=== PATIENT | female | born 2000 | race African-American/Black ===

== ENCOUNTER 2023-04-04 15:54 | Outpatient (REF) | payer MEDICAID, SELFPAY ==
[2023-04-05 07:28] LABS: CT PCR NOT DETECTED (Not Detect.); NG PCR NOT DETECTED (Not Detect.)
[2023-04-05 14:35] LABS: HBS Num1 81.57 mIU/mL (0-7.99); HBc Num1 0.07 S/CO (0.00-0.79); HBsAGNum1 0.54 S/CO (0.00-0.99); HIV AB/AG Nonreactive (Nonreactive); HIV Num 1 0.12 S/CO (0.00-0.99); Hepatitis A Antibody IgM 0.24 Index (0-0.79); Hepatitis B Core Antibody Nonreactive (Nonreactive); Hepatitis B Surface Antigen Negative (Negative); ~Hepatitis A Antibody IgM Nonreactive (Nonreactive); ~Hepatitis B Surface Antibody REACTIVE (Nonreactive); ~Hepatitis C Antibody Nonreactive (Nonreactive)
[2023-04-07 09:02] LABS: Syphilis Screen Nonreactive (Nonreactive)
== END 2023-04-04 15:55 | disposition home or self-care (01) ==
LOC: HO.HHCL 15:54
PROVIDERS: Visit Provider Internal Medicine
DX: Z00.00 Encounter for general adult medical examination without abnormal findings (principal); Z11.4 Encounter for screening for human immunodeficiency virus [HIV]; Z11.3 Encounter for screening for infections with a predominantly sexual mode of transmission
CPT/HCPCS: 0353U; 86704; 86706; 86709; 86780; 86803; 87340; 87389

== ENCOUNTER 2023-05-22 12:17 | Outpatient (AMB) | payer MEDICAID, SELFPAY ==
--- NOTE | 2023-05-22 12:19 | A.OFFVIS_ITS ---
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 No history of abnormal Pap smears [facility] Social History (Updated 05/22/23 @ 12:23 by CORINA Seymour) Alcohol intake: current Alcohol intake frequency: holidays/special occasions only Female Reproductive History Menstrual Age of Menarche: 11 Duration of menses: 3-5 days Date of last menstrual period: 05/16/23 control method: none Total pregnancies: 0 Review of Systems Const All systems reviewed & are unremarkable except as noted in HPI and below Physical Exam Vital Signs: Last Vital Signs BP 110/78 05/22/23 12:21 BMI result Body Mass Index 23.0 General: Yes no CVA tenderness External Female Exam: normal appearance of the urethra and other (Whitish discoloration the posterior fourchette, right and left labia minora) Speculum Exam - Vagina: normal appearance of the vagina, normal palpation, no lesions and no masses Speculum Exam - Cervix: normal appearance of the cervix, normal palpation, no lesions, no masses and nontender Bimanual exam- vagina & uterus: normal bimanual exam, normal palpation, uterine size normal, normal palpation, uterine shape normal, No Cervical tenderness present and non-tender Bimanual Exam- Adnexa, other: Other (Right adnexal fullness, left adnexa within normal) Back/Spine/Pelvis Back: no CVA tenderness Assessment & Plan Assessment & Plan (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 GC/CT taken, cervical cytology done, recommended vulvar biopsy rule out KELSEY. Instructions given the patient to schedule a vulvar biopsy appointment within 2 weeks All questions answered, the patient verbalized understanding (2) Adnexal fullness: Code(s): N94.9 - Unspecified condition associated with female genital organs and menstrual cycle Plan: Discussed with the patient the finding on pelvic exam right pelvic for the scan will order pelvic ultrasound. Instructions given the patient to schedule an ultrasound follow-up appointment. All questions answered, the patient verbalized understanding Orders: Orders CT NG by PCR Today N90.4 - Leukoplakia of vulva Pap Smear Today N90.4 - Leukoplakia of vulva US pelvic and transvaginal Today N94.9 - Unspecified condition associated with female genital organs and menstrual cycle Coding Level of Care Code New Pt Level 3 (65830) Diagnoses Vulvar leukoplakia N90.4 Adnexal fullness N94.9
[2023-05-22 12:21] VITALS: BP 110/78; BMI 23.0
== END 2023-05-22 12:50 | disposition home or self-care (01) ==
PROVIDERS: PCP Internal Medicine; Visit Provider Obstetrics & Gynecology
DX: N90.4 Leukoplakia of vulva (principal); N94.9 Unspecified condition associated with female genital organs and menstrual cycle
CPT/HCPCS: 99203

== ENCOUNTER 2023-05-22 12:17 | Outpatient (REF) | payer MEDICAID, SELFPAY ==
[2023-05-22 16:32] LABS: CT PCR NOT DETECTED (Not Detect.); NG PCR NOT DETECTED (Not Detect.)
== END 2023-05-22 12:18 | disposition home or self-care (01) ==
LOC: HO.LNP 12:17
PROVIDERS: PCP Internal Medicine; Visit Provider Obstetrics & Gynecology
DX: N90.4 Leukoplakia of vulva (principal); N94.9 Unspecified condition associated with female genital organs and menstrual cycle
CPT/HCPCS: 0353U; 88142

== ENCOUNTER 2023-06-30 14:05 | Outpatient (REF) | payer MEDICAID, SELFPAY ==
--- NOTE | ~2023-06-30 | US_ITS ---
EXAMINATION: US PELVIS CLINICAL INFORMATION: Adnexal fullness. Unspecified condition associated with female genital organs. Last menstrual period 06/13/2023. Patient denies pain. COMPARISON: None available. TECHNIQUE: Ultrasound of the pelvis is performed using both transabdominal and transvaginal transducers along with Doppler. Transvaginal imaging is performed due to inadequate visualization transabdominally. FINDINGS: The uterus is heterogeneous and measures 7.3 x 3.3 x 4.6 cm and is heterogeneous. No discrete fibroids. Endometrium is heterogeneous in echotexture with thickness of 1.0 cm. Right ovary measures 2.9 x 2.1 x 2.4 cm, volume 7.6 mL and is grossly unremarkable. Left ovary measures 4.2 x 2.0 x 2.1 cm, volume 9.2 mL. Left ovarian 2.4 x 2.1 x 1.8 cm complex cyst with thick bronson, possibly representing an involuting corpus luteum. Small amount of free fluid in the pelvis. US/US pelvic and transvaginal IMPRESSION: 1. No discrete fibroids. Heterogeneous uterus. 2. Endometrium is heterogeneous in echotexture with thickness of 1.0 cm. 3. Small amount of free fluid in the pelvis. 4. Left ovarian 2.4 cm complex cyst with thick bronson, possibly representing an involuting corpus luteum. Correlation with clinical exam and possible gynecologic consultation recommended to determine further management including possible follow-up ultrasound in 6-8 weeks.
== END 2023-06-30 14:06 | disposition home or self-care (01) ==
LOC: HO.US 14:05
PROVIDERS: PCP Internal Medicine; Visit Provider Obstetrics & Gynecology
DX: N94.9 Unspecified condition associated with female genital organs and menstrual cycle (principal)
CPT/HCPCS: 76830; 76856

== ENCOUNTER 2023-07-14 09:42 | Outpatient (AMB) | payer MEDICAID, SELFPAY ==
[2023-07-14 09:56] VITALS: BMI 22.7
--- NOTE | 2023-07-14 09:56 | A.OFFVIS_ITS ---
Intake Vital Signs 07/14/23 09:56 Height 5 ft 5 in Weight 136 lb 10.986 oz BMI 22.7 Intake Visit Reasons: Ultrasound follow up/ Vulvar biopsy Allergies No Known Allergies Allergy (Verified 05/22/23 12:22) HPI HPI Comments History of Present Illness Details Presenting for ultrasound follow-up and vulvar biopsy. GC/chlamydia negative. Pelvic ultrasound showed the following: The uterus is heterogeneous and measures 7.3 x 3.3 x 4.6 cm and is heterogeneous. No discrete fibroids. Endometrium is heterogeneous in echotexture with thickness of 1.0 cm. Right ovary measures 2.9 x 2.1 x 2.4 cm, volume 7.6 mL and is grossly unremarkable. Left ovary measures 4.2 x 2.0 x 2.1 cm, volume 9.2 mL. Left ovarian 2.4 x 2.1 x 1.8 cm complex cyst with thick bronson, possibly representing an involuting corpus luteum. Small amount of free fluid in the pelvis. [facility] Social History Alcohol intake: current Alcohol intake frequency: holidays/special occasions only Female Reproductive History Menstrual Age of Menarche: 11 Review of Systems Const All systems reviewed & are unremarkable except as noted in HPI and below Reports as per HPI and Reports no additional complaints GI Reports no additional complaints Reports no additional complaints Physical Exam Vital Signs: BMI result Body Mass Index 22.7 Office Procedures COLOR TECHNICIAN Biopsy Before the procedure was started d/w patient the procedure, alternatives ( do nothing, medical rx), & all the risks associated with the procedure ( bleeding , infection, vulvar scarring, painful intercourse, injury to vessels, possible need for transfusion with all its risks) then patient signed the consent. Preop dx: Left vulvar leukoplakia Op: Left vulvar leukoplakia biopsy Post op: Same Anesthesia: Lidocaine 1% 3cc used Procedure: Using betadine the area was scrubbed and draped in the usual manner. 3 cc of lidocaine was used for anesthesia at the Left vulvar leukoplakia area ; using scissors and pickup the left vulvar lesion was excised. Pressure was used for hemostasis. The patient tolerated the procedure well. Discharge Instructions: The patient was instructed to schedule an appointment in 2 weeks for follow-up and to call if temp>100.4, area of the biopsy redness or pain, nausea/vomiting. This note was generated with a voice recognition program. Some errors may have been overlooked during the review of this note. Sometimes these errors may affect the content or meaning of a given sentence. 12533-Xsskaq of Vulva/Perineum Procedure code (CPT) selection complete Assessment & Plan Assessment & Plan (1) Complex ovarian cyst: Code(s): N83.299 - Other ovarian cyst, unspecified side Plan: Discussed with the patient the complex ovarian cyst by ultrasound. Discussed with the patient the Ultrasound findings, the main limitation of transvaginal ultrasonography alone as a diagnostic tool to distinguish benign from malignant masses relates to its lack of specificity and low positive predictive value for cancer. The differential diagnosis discussed with the patient includes the following but not limited to: benign and malignant gynecological and non-gynecological causes. Discussed with the patient options of treatment , including laparoscopy ovarian cystectomy/oophorectomy vs. expectant management with repeat US in repeating pelvic US in 12 weeks from previous US. If the ovarian complex cyst is persistent larger and / or more complex looking, will refer to gynecologic Oncology. All pros, cons, risks and benefits of each approach were discussed with the patient including but not limited to a delay in the diagnosis and treatment of ovarian cancer affecting the prognosis; The patient decided to go ahead with expectant management. Instructions given the patient to schedule a 3 months follow-up ultrasound appointment. All questions were answered & the patient verbalized understanding and agreed with the plan. 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
== END 2023-07-14 10:33 | disposition home or self-care (01) ==
PROVIDERS: PCP Internal Medicine; Visit Provider Obstetrics & Gynecology
DX: N90.4 Leukoplakia of vulva (principal); N83.299 Other ovarian cyst, unspecified side
CPT/HCPCS: 56605

== ENCOUNTER 2023-07-14 09:42 | Outpatient (REF) | payer MEDICAID, SELFPAY | END 2023-07-14 09:43 | disposition home or self-care (01) | LOC: HO.LNP 09:42 | PROVIDERS: PCP Internal Medicine; Visit Provider Obstetrics & Gynecology | DX: N83.299 Other ovarian cyst, unspecified side (principal); N90.4 Leukoplakia of vulva | CPT/HCPCS: 56605; 88305 ==

== ENCOUNTER 2023-09-02 13:55 | Outpatient (AMB) | payer MEDICAID, SELFPAY ==
[2023-09-02 13:59] VITALS: BP 106/64; BMI 22.6
--- NOTE | 2023-09-02 13:59 | MHC.OFFVIS ---
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 The pathology showed the following: Vulva, left posterior fourchette, biopsy: Lichen simplex chronicus; negative for dysplasia or fungi [facility] Social History Alcohol intake: current Alcohol intake frequency: holidays/special occasions only Female Reproductive History Menstrual Age of Menarche: 11 Duration of menses: 3-5 days Date of last menstrual period: 08/10/23 control method: none Date of last pap smear: 05/22/23 (negative) Review of Systems Const All systems reviewed & are unremarkable except as noted in HPI and below Reports as per HPI and Reports no additional complaints GI Reports no additional complaints Reports no additional complaints Physical Exam Vital Signs: Last Vital Signs BP 106/64 09/02/23 13:59 BMI result Body Mass Index 22.6 Assessment & Plan Assessment & Plan (1) 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 Counseled the patient on how to stop the ?itch-scratch cycle,? the following information were discussed with the patient regarding vulvar care and hygiene: Avoid baby wipes on anti-septic so but the fluid, scented toilet paper, condoms, contraceptive creams or gels, personal lubricant, nylon underwear, specific laundry detergents, shaving, latex products, sanitary products, soaps, oils, topical agent . In addition recommended to the patient to use the following: Mild soaps, avoiding it on the vulva, cleanse of out with water only, gently pat the vulva dry after bathing, fly preservative-free, unscented or fragrance free emollients to hold the moisture in the skin, use Naty care bottles to rinse after urination, with 100% cotton, and scented fragments free menstrual pads use adequate lubricant for intercourse. Will prescribe a medium-potency, Triamcinolone acetonide 0.1% cream to be used 1-2 times daily for 4 weeks and if it does not work, instructed the patient to call back will send the prescription for clobetasol 0.05%, a high-potency topical corticosteroid ointment , and oral antipruritic medication hydroxyzine 25 mg p.o. Q 6-8 p.r.n. Instructed the patient if she has daytime itching or she cannot tolerate hydroxyzine, will treat with selective serotonin reuptake inhibitor antidepressants (such as fluoxetine, paroxetine, sertraline, or citalopram). Instructed the patient to schedule a should be follow up appointment in 4 weeks after initiation of the treatment Medications: New triamcinolone acetonide 0.1% Apply to the affected area twice a day for 4 weeks 1 appl topical BID 80 grams 0RF 4 weeks Coding Level of Care Code Est Pt Level 3 (59339) Diagnoses Lichen simplex chronicus L28.0
== END 2023-09-02 14:32 | disposition home or self-care (01) ==
PROVIDERS: PCP Internal Medicine; Visit Provider Obstetrics & Gynecology
DX: L28.0 Lichen simplex chronicus (principal)
CPT/HCPCS: 99213

== ENCOUNTER → 2023-09-02 13:55 | Outpatient (BNVA) | payer MEDICAID, SELFPAY | PROVIDERS: PCP Internal Medicine; Visit Provider Obstetrics & Gynecology | DX: L28.0 Lichen simplex chronicus (principal) | CPT/HCPCS: 99212 ==

== ENCOUNTER 2024-01-06 11:28 | Outpatient (REF) | payer MEDICAID, SELFPAY ==
--- NOTE | ~2024-01-06 | US_ITS ---
EXAMINATION: US PELVIS CLINICAL INFORMATION: Ovarian cysts LMP: Began yesterday COMPARISON: Pelvic ultrasound 07/01/2023 TECHNIQUE: Ultrasound of the pelvis is performed using both transabdominal and transvaginal transducers along with Doppler. Transvaginal imaging is performed due to inadequate visualization transabdominally. FINDINGS: Uterus: The uterus is anteverted and measures 7.6 x 3.3 x 4.1 cm. 0.9 x 0.8 x 1.2 cm posterior exophytic fibroid is noted. The endometrial thickness is 0.8 cm. Adnexa: Both ovaries are visualized. There is normal color flow to the adnexa. There is no ovarian torsion. There is a small amount of free fluid within the cul-de-sac. Right ovary measures 3.1 x 2.3 x 2.0 cm. Volume 7.5 mL. 7.4 x 5.0 x 7.0 cm predominantly simple cyst is seen in the right adnexa. This lies superior to the uterus. Left ovary measures 2.3 x 2.0 x 1.5 cm. Volume 3.6 mL. US/US pelvic and transvaginal IMPRESSION: 1. 7.4 cm predominantly simple cyst in the right adnexa. This is probably a benign cyst. Follow-up ultrasound in 3-6 months is recommended. 2. 1.2 cm posterior exophytic fibroid. 3. Normal left ovary.
== END 2024-01-06 11:29 | disposition home or self-care (01) ==
LOC: HO.US 11:28
PROVIDERS: PCP Internal Medicine; Visit Provider Obstetrics & Gynecology
DX: N83.299 Other ovarian cyst, unspecified side (principal)
CPT/HCPCS: 76830; 76856

== ENCOUNTER 2024-01-22 15:25 | Outpatient (AMB) | payer MEDICAID, SELFPAY ==
--- NOTE | 2024-01-22 15:27 | MHC.OFFVIS ---
Vital Signs 01/22/24 15:28 Height 5 ft 5 in Weight 135 lb BMI 22.5 BP 112/70 Blood Pressure Location Lt brachial Position Sitting Intake Visit Reasons: US follow up Allergies No Known Allergies Allergy (Verified 01/22/24 15:27) HPI Comments Details: Presenting for ultrasound follow-up regarding left complex ovarian cyst identified on a previous ultrasound in June of 2023. Ultrasound done recently showed the following: Uterus: The uterus is anteverted and measures 7.6 x 3.3 x 4.1 cm. 0.9 x 0.8 x 1.2 cm posterior exophytic fibroid is noted. The endometrial thickness is 0.8 cm. Adnexa: Both ovaries are visualized. There is normal color flow to the adnexa. There is no ovarian torsion. There is a small amount of free fluid within the cul-de-sac. Right ovary measures 3.1 x 2.3 x 2.0 cm. Volume 7.5 mL. 7.4 x 5.0 x 7.0 cm predominantly simple cyst is seen in the right adnexa. This lies superior to the uterus. Left ovary measures 2.3 x 2.0 x 1.5 cm. Volume 3.6 mL. The patient is doing well with no complaints no pelvic pain or any other concerns [facility] Social History Alcohol intake: current Alcohol intake frequency: holidays/special occasions only Female Reproductive History Menstrual Age of Menarche: 11 Review of Systems Const All systems reviewed & are unremarkable except as noted in HPI and below Reports as per HPI and Reports no additional complaints GI Reports no additional complaints Reports no additional complaints Physical Exam Vital Signs: Last Vital Signs BP 112/70 01/22/24 15:28 BMI result Body Mass Index 22.5 Assessment & Plan Assessment & Plan (1) Simple ovarian cyst: Comment: Right 7.4 cm Code(s): N83.209 - Unspecified ovarian cyst, unspecified side Category: Medical Plan: Discussed with the patient the finding on ultrasound showing a 7.4 cm unilocular cyst. Explained to the patient the risk of pre malignancy/malignancy is low. Signs and symptoms of ovarian cyst rupture and/or torsion were discussed with the patient, she is to call or go to emergency room in case of sudden severe pelvic pain, nausea or vomiting and to schedule a 3 month pelvic ultrasound and an ultrasound follow-up appointment. All questions answered, the patient verbalized understanding Orders: Orders US pelvic and transvaginal 3 Months N83.209 - Unspecified ovarian cyst, unspecified side Coding Level of Care Code Est Pt Level 3 (68356) Diagnoses Simple ovarian cyst N83.209
[2024-01-22 15:28] VITALS: BP 112/70; BMI 22.5
== END 2024-01-22 15:54 | disposition home or self-care (01) ==
LOC: HO.HWS 15:25
PROVIDERS: PCP Internal Medicine; Referring Provider Internal Medicine; Visit Provider Obstetrics & Gynecology
DX: N83.209 Unspecified ovarian cyst, unspecified side (principal)
CPT/HCPCS: 99213

== ENCOUNTER → 2024-01-22 15:25 | Outpatient (BNVA) | payer MEDICAID, SELFPAY | PROVIDERS: PCP Internal Medicine; Visit Provider Obstetrics & Gynecology | DX: N83.209 Unspecified ovarian cyst, unspecified side (principal) | CPT/HCPCS: 99212 ==

== ENCOUNTER 2024-04-20 14:53 | Outpatient (REF) | payer MEDICAID, SELFPAY ==
[2024-04-20 16:31] LABS: MANUAL DIFF FLAG NO
[2024-04-20 16:36] LABS: Basophils Percent Auto 0.4 % (0-2); Eosinophils Absolute Auto 0.3 X10*3/uL (0.0-0.4); Eosinophils Percent Auto 2.7 % (0-4); Hematocrit 34.4 % (37.0-47.0); Hemoglobin 11.9 g/dl (12.0-16.0); Imm Gran Abs Auto 0.03 X10*3/uL (0.00-0.03); Imm Gran Pct Auto 0.3 % (0.0-0.4); Lymphocytes Absolute Auto 4.2 X10*3/uL (1.2-4.9); Lymphocytes Percent Auto 42.7 % (20-40); Mean Corpuscular HGB Conc 34.6 g/dl (31.0-35.0); Mean Corpuscular Hemoglobin 28.5 pg (27.0-33.0); Mean Corpuscular Volume 82.5 fL (80.0-98.0); Mean Platelet Volume 11.1 fL (9.4-12.3); Monocytes Absolute Auto 0.6 X10*3/uL (0.1-1.2); Monocytes Percent Auto 6.3 % (2-11); Neutrophils Absolute Auto 4.6 x10*3/uL (2.0-8.3); Neutrophils Percent Auto 47.6 % (45-73); Platelet Count 321 X10*3/uL (160-400); Red Blood Count 4.17 X10*6/uL (4.20-5.50); Red Cell Distribution Width 12.9 % (11.0-16.0); White Blood Count 9.7 X10*3/uL (4.8-10.8)
[2024-04-20 16:46] LABS: Estimated Average Glucose 94 mg/dL; Hemoglobin A1c % 4.9 % (<6.0)
[2024-04-20 16:56] LABS: Alanine Aminotransferase 11 U/L (0-31); Albumin Level 4.5 g/dL (3.5-5.0); Alkaline Phosphatase 62 U/L (39-117); Anion Gap 12 (12-20); Aspartate Amino Transferase 14 U/L (5-31); Bilirubin Total 0.3 mg/dL (0.0-1.0); Blood Urea Nitrogen 5 mg/dL (9-16); Calcium 9.3 mg/dL (8.4-10.2); Carbon Dioxide 24 mmol/L (22-29); Chloride 106 mmol/L (96-108); Cholesterol 175 mg/dL (<200); Estimated Glomerular Filt Rate > 60; Glucose Random 78 mg/dL (60-115); HDL Cholesterol 53 mg/dL (>40); LDL Cholesterol Calculated 102 mg/dL (<100); Potassium 3.4 mmol/L (3.3-5.1); Sodium 139 mmol/L (135-145); Total Protein 8.3 g/dL (6.5-8.0); Triglycerides 100 mg/dL (<150)
[2024-04-20 18:04] LABS: Reflex LDLD? No
[2024-04-21 07:50] LABS: HBS Num1 87.34 mIU/mL (0-7.99); HIV AB/AG Nonreactive (Nonreactive); HIV Num 1 0.07 S/CO (0.00-0.99); Hepatitis A Antibody IgM 0.15 Index (0-0.79); Hepatitis B Core Antibody Nonreactive (Nonreactive); Hepatitis B Surface Antigen Negative (Negative); ~HepC Num1 0.18 S/CO (0.00-0.79); ~Hepatitis A Antibody IgM Nonreactive (Nonreactive); ~Hepatitis B Surface Antibody REACTIVE (Nonreactive); ~Hepatitis C Antibody Nonreactive (Nonreactive)
[2024-04-22 10:42] LABS: RPR Rapid Plasma Reagin NON-REACTIVE (NON-REACTIVE)
== END 2024-04-20 14:54 | disposition home or self-care (01) ==
LOC: HO.HHCL 14:53
PROVIDERS: Visit Provider Internal Medicine
DX: Z00.00 Encounter for general adult medical examination without abnormal findings (principal)
CPT/HCPCS: 36415; 80053; 80061; 83036; 85025; 86592; 86704; 86706; 86709; 86803; 87340; 87389

== ENCOUNTER 2024-04-23 12:56 | Outpatient (REF) | payer MEDICAID, SELFPAY ==
--- NOTE | ~2024-04-23 | US_ITS ---
EXAMINATION: US PELVIS CLINICAL INFORMATION: Ovarian cyst. COMPARISON: None available. TECHNIQUE: Ultrasound of the pelvis is performed using both transabdominal and transvaginal transducers along with Doppler. Transvaginal imaging is performed due to inadequate visualization transabdominally. FINDINGS: UTERUS: The uterus is anteverted and measures 6.4 x 3.7 x 4.2 cm. The double wall endometrial thickness is 16 mm. Of note, there is a small fluid collection seen in the endometrial canal measuring 3 mm in diameter. No pole or yolk sac is seen, but differential diagnosis would include a . The uterus is smooth in contour and has normal myometrial echogenicity. Small uterine fibroid is seen on the right measuring 1.3 cm. Nabothian cysts are present in the cervix. ADNEXA: Both ovaries are visualized. There is normal color flow to the adnexa. There is no ovarian torsion. There is no pelvic ascites or fluid collection. Right ovary measures 3.4 x 2.4 x 3.0 cm for a volume of 12.8 mL which includes a 1.7 cm corpus luteal cyst. A right-sided adnexal cyst is present measuring 6.3 x 5.9 x 8.0 cm. Left ovary measures 2.7 x 1.6 x 1.9 cm for a volume of 4.3 mL and appears unremarkable. US/US pelvic and transvaginal IMPRESSION: 1. There is a small fluid collection in the endometrial canal. Differential diagnosis would include a . Please correlate with beta-hCG levels. 2. Right adnexal cyst measuring 8.0 cm. Follow-up ultrasound in 6-12 weeks is recommended. Electronically signed by: Federico Mak MD 04/28/2024 05:06 PM EDT
== END 2024-04-23 12:57 | disposition home or self-care (01) ==
LOC: HO.US 12:56
PROVIDERS: PCP Internal Medicine; Visit Provider Obstetrics & Gynecology
DX: N83.209 Unspecified ovarian cyst, unspecified side (principal)
CPT/HCPCS: 76830; 76856

== ENCOUNTER 2024-04-27 08:22 | Outpatient (REF) | payer MEDICAID, SELFPAY ==
[2024-04-27 09:52] LABS: HCG Quantitative 8 mIU/mL
== END 2024-04-27 08:23 | disposition home or self-care (01) ==
LOC: HO.LAB 08:22
PROVIDERS: PCP Internal Medicine; Visit Provider Obstetrics & Gynecology
DX: R93.89 Abnormal findings on diagnostic imaging of other specified body structures (principal)
CPT/HCPCS: 36415; 84702

== ENCOUNTER 2024-04-27 08:53 | Outpatient (AMB) | payer MEDICAID, SELFPAY ==
--- NOTE | 2024-04-27 08:54 | MHC.OFFVIS ---
Intake Visit Reasons: abnormal ultrasound Allergies No Known Allergies Allergy (Verified 01/22/24 15:27) HPI Comments Details: The patient is scheduled tele health visit to discuss the results of her hCG. Received a call by the avionics electronics technician on 04/23 stating that there is an endometrial cyst questionable gestational sac. The patient was contacted and urine test was done was negative, hCG ordered which was done today and came back at 8. No pelvic pain and or bleeding or any other concerns. LMP was 04/01/24. No official ultrasound report available [facility] Social History Alcohol intake: current Alcohol intake frequency: holidays/special occasions only Female Reproductive History Menstrual Age of Menarche: 11 Review of Systems Const All systems reviewed & are unremarkable except as noted in HPI and below Reports as per HPI and Reports no additional complaints GI Reports no additional complaints Reports no additional complaints Telehealth Telehealth Telehealth Platform: Telephone Location of provider rendering services: practice address Location of patient: address on file Patient Identification confirmed using: Name, : Yes Telehealth method: video Patient verbally consented to treatment: Yes Patient verbally consented to billing insurance company: Yes Patient informed of any privacy concerns related to visit: Yes Assessment & Plan Assessment & Plan (1) Elevated serum hCG: Code(s): R79.89 - Other specified abnormal findings of blood chemistry Category: Medical Plan: Discussed with the patient the results of hCG 8, recommended repeat hCG in 48 hours. SAB/ectopic warnings given to patient, Instructions given the patient to call in case of pelvic pain and or vaginal bleeding I spent a total of 20 minutes reviewing the chart, talking to the patient via video and documenting in the medical record. Orders: Orders HCG Quantitative 04/29/24 R79.89 - Other specified abnormal findings of blood chemistry Coding Level of Care Code Tele Est Pt Level 1 (81768) Diagnoses Elevated serum hCG R79.89
== END 2024-04-27 12:06 | disposition home or self-care (01) ==
LOC: HO.HWS 08:53
PROVIDERS: PCP Internal Medicine; Visit Provider Obstetrics & Gynecology
DX: R79.89 Other specified abnormal findings of blood chemistry (principal)
CPT/HCPCS: 99211

== ENCOUNTER 2024-04-29 08:21 | Outpatient (REF) | payer MEDICAID, SELFPAY ==
[2024-04-29 09:12] LABS: HCG Quantitative 56 mIU/mL
== END 2024-04-29 08:22 | disposition home or self-care (01) ==
LOC: HO.LAB 08:21
PROVIDERS: PCP Internal Medicine; Visit Provider Obstetrics & Gynecology
DX: R93.89 Abnormal findings on diagnostic imaging of other specified body structures (principal)
CPT/HCPCS: 36415; 84702

== ENCOUNTER 2024-04-29 14:27 | Outpatient (AMB) | payer MEDICAID, SELFPAY ==
--- NOTE | 2024-04-29 14:27 | A.OFFVIS_ITS ---
Intake Visit Reasons: HCG follow up Allergies No Known Allergies Allergy (Verified 01/22/24 15:27) HPI Comments Details: The patient is scheduled tele health visit for hCG follow-up. HCG went up 56 last 48 hours. No abdominal cramping and or bleeding. Pelvic ultrasound done on 04/23 showed the following: IMPRESSION: 1. There is a small fluid collection in the endometrial canal. Differential diagnosis would include a . Please correlate with beta-hCG levels. 2. Right adnexal cyst measuring 8.0 cm. Follow-up ultrasound in 6-12 weeks is recommended. [facility] Social History Alcohol intake: current Alcohol intake frequency: holidays/special occasions only Female Reproductive History Menstrual Age of Menarche: 11 Review of Systems Const All systems reviewed & are unremarkable except as noted in HPI and below Reports as per HPI and Reports no additional complaints GI Reports no additional complaints Reports no additional complaints Telehealth Telehealth Telehealth Platform: Telephone Location of provider rendering services: practice address Location of patient: address on file Patient Identification confirmed using: Name, : Yes Telehealth method: video Patient verbally consented to treatment: Yes Patient verbally consented to billing insurance company: Yes Patient informed of any privacy concerns related to visit: Yes Assessment & Plan Assessment & Plan (1) Early stage of : Code(s): Z34.90 - Encounter for supervision of normal , unspecified, unspecified trimester Category: Medical Plan: HCG q.48h and follow-up on Friday SAB/ectopic warnings given the patient, instructions given to the patient to call or go to the emergency room in case of vaginal bleeding and or cramping vitamin tablet p.o. q.d. (2) Simple ovarian cyst: Comment: Right 8 cm Code(s): N83.209 - Unspecified ovarian cyst, unspecified side Category: Medical Plan: Discussed with the patient the finding on ultrasound showing 8 cm simple ovarian cyst. Signs and symptoms of ovarian rupture and or torsion were given the patient. Instructions given the patient to call or go to emergency room in case of abdominal/pelvic pain, nausea or vomiting or vaginal bleeding. Repeat ultras ound in 3 months ordered. will be All questions answered, the patient verbalized understanding I spent a total of 20 minutes reviewing the chart, talking to the patient via video and documenting in the medical record. Orders: Orders US pelvic and transvaginal 3 Months N83.209 - Unspecified ovarian cyst, unspecified side HCG Quantitative 05/01/24 Z34.90 - Encounter for supervision of normal , unspecified, unspecified trimester HCG Quantitative 05/03/24 Z34.90 - Encounter for supervision of normal , unspecified, unspecified trimester Medications: New no.144-folic acid 400 mcg 1 tab PO DAILY 180 days 180 tabs 1RF Coding Level of Care Code Tele Est Pt Level 1 (05650) Diagnoses Early stage of Z34.90 Simple ovarian cyst N83.209
== END 2024-04-29 14:54 | disposition home or self-care (01) ==
LOC: HO.HWS 14:27
PROVIDERS: PCP Internal Medicine; Visit Provider Obstetrics & Gynecology
DX: Z34.90 Encounter for supervision of normal pregnancy, unspecified, unspecified trimester (principal); N83.209 Unspecified ovarian cyst, unspecified side
CPT/HCPCS: 99211

== ENCOUNTER 2024-05-01 10:41 | Outpatient (REF) | payer MEDICAID, SELFPAY ==
[2024-05-01 12:01] LABS: HCG Quantitative 176 mIU/mL
== END 2024-05-01 10:42 | disposition home or self-care (01) ==
LOC: HO.LAB 10:41
PROVIDERS: PCP Internal Medicine; Visit Provider Obstetrics & Gynecology
DX: Z34.90 Encounter for supervision of normal pregnancy, unspecified, unspecified trimester (principal)
CPT/HCPCS: 36415; 84702

== ENCOUNTER 2024-05-03 06:45 | Outpatient (REF) | payer MEDICAID, SELFPAY ==
[2024-05-03 07:48] LABS: HCG Quantitative 439 mIU/mL
== END 2024-05-03 06:46 | disposition home or self-care (01) ==
LOC: HO.LAB 06:45
PROVIDERS: Visit Provider Obstetrics & Gynecology
DX: Z34.90 Encounter for supervision of normal pregnancy, unspecified, unspecified trimester (principal)
CPT/HCPCS: 36415; 84702

== ENCOUNTER 2024-05-03 12:07 | Outpatient (AMB) | payer MEDICAID, SELFPAY ==
--- NOTE | 2024-05-03 12:08 | MHC.OFFVIS ---
Intake Visit Reasons: HCG follow up Allergies No Known Allergies Allergy (Verified 01/22/24 15:27) HPI Comments Details: The patient is scheduled tele health visit for hCG follow-up. Doing well with no complaints no pelvic cramps or vaginal bleeding. HCG on 04/29 was 56 On 05/01 hCG was 176 On 05/03 hCG was 439 PFSH Social History Alcohol intake: current Alcohol intake frequency: holidays/special occasions only Female Reproductive History Menstrual Age of Menarche: 11 Review of Systems Const All systems reviewed & are unremarkable except as noted in HPI and below Reports as per HPI and Reports no additional complaints GI Reports no additional complaints Reports no additional complaints Telehealth Telehealth Telehealth Platform: Telephone Location of provider rendering services: practice address Location of patient: address on file Patient Identification confirmed using: Name, : Yes Telehealth method: video Patient verbally consented to treatment: Yes Patient verbally consented to billing insurance company: Yes Patient informed of any privacy concerns related to visit: Yes Assessment & Plan Assessment & Plan (1) Early stage of : Code(s): Z34.90 - Encounter for supervision of normal , unspecified, unspecified trimester Category: Medical Plan: Discussed with the patient the hCG level and rate of rise pointing towards normal intrauterine although ectopic can not be ruled out. Will repeat hCG in a week with a pelvic ultrasound. SAB/ectopic warnings given to patient, she is to call or go to emergency room in case of pelvic pain and or vaginal bleeding. vitamin 1 tablet p.o. q.d. Instructions given the patient to schedule an ultrasound and a follow-up appoint in a week I spent a total of 20 minutes reviewing the chart, talking to the patient via video and documenting in the medical record. Orders: Orders HCG Quantitative 1 Week Z34.90 - Encounter for supervision of normal , unspecified, unspecified trimester US OB follow up 1 Week Z34.90 - Encounter for supervision of normal , unspecified, unspecified trimester Coding Level of Care Code Tele Est Pt Level 1 (89734) Diagnoses Early stage of Z34.90
== END 2024-05-03 14:27 | disposition home or self-care (01) ==
LOC: HO.HWS 12:07
PROVIDERS: PCP Internal Medicine; Visit Provider Obstetrics & Gynecology
DX: Z34.90 Encounter for supervision of normal pregnancy, unspecified, unspecified trimester (principal)
CPT/HCPCS: 99211

== ENCOUNTER 2024-05-12 14:10 | Outpatient (REF) | payer MEDICAID, SELFPAY ==
--- NOTE | ~2024-05-12 | US_ITS ---
EXAMINATION: US OBSTETRICAL ULTRASOUND CLINICAL INFORMATION: Encountered for supervision of normal . Beta-hCG of 439 on 05/03/2024. COMPARISON: Pelvic ultrasound of 04/23/2024, 01/06/2024. LMP: 04/02/2024. Gestational age by maternal dates is 5 weeks 5 days. Estimated date of delivery by maternal dates is 01/07/2025. TECHNIQUE: Real-time ultrasound scanning of the pelvis is acquired via transabdominal and transvaginal approach. FINDINGS: The uterus is anteverted in orientation. A 1.4 x 1.0 x 1.2 cm exophytic fibroid from the mid uterine body posteriorly is again noted, previously 0.9 x 0.8 x 1.2 cm (01/06/2024). There is a single intrauterine gestational sac with visible yolk. An embryo is not seen at this time which is likely related to early gestational age. There is no significant subchorionic hemorrhage or hematoma. MSD (mean gestational sac diameter): 0.8 cm (5 weeks 3 days +/- 4 days). KAMRON (estimated date of delivery): 01/09/2025 +/- 4 days. MATERNAL ADNEXA: The right maternal ovary measures 3.2 x 2.3 x 2.3 cm. There is a 2.3 x 1.6 x 1.7 cm corpus luteal cyst in the right ovary. A few small echogenic foci are noted in the right ovary which may represent small calcifications. The left maternal ovary measures 3.1 x 1.3 x 1.8 cm. Multiple left ovarian small follicles are noted. Note that an 8 cm simple cystic mass was noted in the right adnexa on the ultrasound of 04/23/2024 and 01/06/2024. On the submitted images, a simple cystic structure is documented in the left adnexa measuring 8.0 x 5.3 x 6.7 cm. This structure has been labeled as bladder on the images; however, I believe that it represents the same simple adnexal cystic mass documented on the previous ultrasounds as a right adnexal cystic mass. Upon review of the prior images and current images, the finding is more in the midline rather than to the left or right adnexa. I believe an anechoic decompressed structure posterior to this cystic mass represents a relatively decompressed urinary bladder. Small simple-appearing free fluid is noted in the pelvis. US/US OB pelvic and transvaginal IMPRESSION: 1. Single intrauterine gestation sac with ultrasound gestational age of 5 weeks 3 days +/- 4 days. An embryo is not seen at this time which is likely related to early gestational age. Recommend correlation with serial beta-hCG. Recommend followup ultrasound in 7-10 days to ensure normal progression of the . No sonographic evidence of ectopic . 2. Estimated date of delivery is 01/09/2025 +/- 4 days. 3. As described above, an 8 cm simple cystic structure in the pelvis most likely represents the same simple adnexal cystic structure documented on the previous ultrasounds of 01/06/2024 (7.4 x 5.0 x 7.0 cm) and 04/23/2024 (6.3 x 5.9 x 8.0 cm). The finding is not optimally documented on the current images. This was discussed with Ms. Brittney Hernandez, prison guard supervisor on 05/13/2024 at 10:10 AM. As per discussion with her, the patient will be called back for additional imaging for proper documentation of the finding (without charge). Electronically signed by: Gaby Garcia MD 05/13/2024 12:09 PM EDT
== END 2024-05-12 14:11 | disposition home or self-care (01) ==
LOC: HO.US 14:10
PROVIDERS: PCP Internal Medicine; Visit Provider Obstetrics & Gynecology
DX: Z34.91 Encounter for supervision of normal pregnancy, unspecified, first trimester (principal); Z3A.01 Less than 8 weeks gestation of pregnancy
CPT/HCPCS: 76801; 76816; 76817

== ENCOUNTER 2024-05-18 06:42 | Outpatient (REF) | payer MEDICAID, SELFPAY ==
[2024-05-18 08:09] LABS: HCG Quantitative 57500 mIU/mL
== END 2024-05-18 06:43 | disposition home or self-care (01) ==
LOC: HO.LAB 06:42
PROVIDERS: PCP Internal Medicine; Visit Provider Obstetrics & Gynecology
DX: Z34.90 Encounter for supervision of normal pregnancy, unspecified, unspecified trimester (principal)
CPT/HCPCS: 36415; 84702

== ENCOUNTER 2024-05-18 11:05 | Outpatient (AMB) | payer MEDICAID, SELFPAY ==
--- NOTE | 2024-05-18 11:05 | MHC.OFFVIS ---
Intake Visit Reasons: US follow up/call at 11 am Allergies No Known Allergies Allergy (Verified 01/22/24 15:27) HPI Comments Details: The patient is scheduled tele health visit for follow-up regarding pelvic ultrasound done on 05/12/2024 which showed the following: IMPRESSION: 1. Single intrauterine gestation sac with ultrasound gestational age of 5 weeks 3 days +/- 4 days. An embryo is not seen at this time which is likely related to early gestational age. Recommend correlation with serial beta-hCG. Recommend followup ultrasound in 7-10 days to ensure normal progression of the . No sonographic evidence of ectopic . 2. Estimated date of delivery is 01/09/2025 +/- 4 days. 3. As described above, an 8 cm simple cystic structure in the pelvis most likely represents the same simple adnexal cystic structure documented on the previous ultrasounds of 01/06/2024 (7.4 x 5.0 x 7.0 cm) and 04/23/2024 (6.3 x 5.9 x 8.0 cm). The finding is not optimally documented on the current images. This was discussed with Ms. Brittney Hernandez, wind operations supervisor on 05/13/2024 at 10:10 AM. As per discussion with her, the patient will be called back for additional imaging for proper documentation of the finding (without charge). [facility] Social History Alcohol intake: current Alcohol intake frequency: holidays/special occasions only Female Reproductive History Menstrual Age of Menarche: 11 Review of Systems Const All systems reviewed & are unremarkable except as noted in HPI and below Reports as per HPI and Reports no additional complaints GI Reports no additional complaints Reports no additional complaints Telehealth Telehealth Telehealth Platform: Telephone Location of provider rendering services: practice address Location of patient: address on file Patient Identification confirmed using: Name, : Yes Telehealth method: video Patient verbally consented to treatment: Yes Patient verbally consented to billing insurance company: Yes Patient informed of any privacy concerns related to visit: Yes Assessment & Plan Assessment & Plan (1) Early stage of : Code(s): Z34.90 - Encounter for supervision of normal , unspecified, unspecified trimester Category: Medical Plan: Discussed with the patient the finding of ultrasound, recommended repeat ultrasound on 05/24 to document viability and positive heart rate. SAB warnings given the patient, she is to call or go to emergency room in case of pelvic pain and or bleeding vitamin 1 tablet p.o. q.d. Vitamin B6 25 mg p.o. q.8 p.r.n. nausea and vomiting. Instructions given the patient to call in case of persistent nausea and vomiting. All questions answered, the patient verbalized understanding (2) Simple ovarian cyst: Comment: Right 8 cm Code(s): N83.209 - Unspecified ovarian cyst, unspecified side Category: Medical Plan: Discussed with the patient the finding on ultrasound showing an 8 cm ovarian cyst, repeat ultrasound per radiology's recommendation ordered. Signs and symptoms of ovarian torsion and rupture were given to patient, she is to call or go to emergency room in case of pelvic pain, nausea or vomiting I spent a total of 20 minutes reviewing the chart, talking to the patient via video and documenting in the medical record. Orders: Orders US OB pelvic and transvaginal 05/24/24 N83.209 - Unspecified ovarian cyst, unspecified side, Z34.90 - Encounter for supervision of normal , unspecified, unspecified trimester Medications: New pyridoxine (vitamin B6) (Vitamin B-6) may take every 6 - 8 hours for nausea 25 mg PO tid 30 days PRN 90 tabs 3RF nausea Coding Level of Care Code Tele Est Pt Level 1 (86487) Diagnoses Early stage of Z34.90 Simple ovarian cyst N83.209
== END 2024-05-18 11:59 | disposition home or self-care (01) ==
LOC: HO.HWS 11:05
PROVIDERS: PCP Internal Medicine; Visit Provider Obstetrics & Gynecology
DX: Z34.90 Encounter for supervision of normal pregnancy, unspecified, unspecified trimester (principal); N83.209 Unspecified ovarian cyst, unspecified side
CPT/HCPCS: 99211

== ENCOUNTER 2024-05-24 13:57 | Outpatient (REF) | payer MEDICAID, SELFPAY ==
--- NOTE | ~2024-05-24 | US_ITS ---
EXAMINATION: US OBSTETRICAL ULTRASOUND CLINICAL INFORMATION: Follow-up early with adnexal cyst. COMPARISON: OB ultrasound 05/12/2024. LMP: 04/02/2024. Gestational age by maternal dates is 7 weeks 3 days. Estimated date of delivery by maternal dates is 01/09/2025. TECHNIQUE: Ultrasound of the maternal pelvis is performed using transabdominal transducer. M-mode Doppler is also performed. FINDINGS: There is a single intrauterine gestational sac with visible yolk sac, embryo/fetus, and cardiac activity. There is no significant subchorionic hemorrhage or hematoma. HR: 136 beats per minute. CRL (crown rump length): 0.96 cm (7 weeks 1 day +/- 4 days). KAMRON (estimated date of delivery): 01/09/2025 +/- 4 days. 1.5 cm uterine fibroid is noted in the posterior uterine body. MATERNAL ADNEXA: The right maternal ovary measures 3.5 x 2.8 x 1.9 cm, which includes a corpus luteal cyst. The left maternal ovary measures 2.5 x 2.3 x 1.0 cm. There is a large cyst seen anterior to the uterus in the midline measuring 8.2 x 5.3 x 7.4 cm similar to prior ultrasounds. On the prior ultrasound this measured 8.0 x 5.3 x 6.7 cm. No maternal pelvic ascites. US/US OB <= 14 weeks fetus IMPRESSION: 1. Single intrauterine gestation with ultrasound gestational age of 7 weeks 1 day +/- 4 days. 2. Estimated date of delivery is 01/09/2025 +/- 4 days. 3. Large simple cystic pelvic mass is without significant change. Electronically signed by: Federico Mak MD 07/22/2024 11:21 AM EST
== END 2024-05-24 13:58 | disposition home or self-care (01) ==
LOC: HO.US 13:57
PROVIDERS: PCP Internal Medicine; Visit Provider Obstetrics & Gynecology
DX: O34.80 Maternal care for other abnormalities of pelvic organs, unspecified trimester (principal); N83.201 Unspecified ovarian cyst, right side; Z3A.00 Weeks of gestation of pregnancy not specified
CPT/HCPCS: 76801; 99212

== ENCOUNTER 2024-05-24 14:53 | Outpatient (AMB) | payer MEDICAID, SELFPAY ==
--- NOTE | 2024-05-24 15:07 | MHC.OFFVIS ---
Vital Signs 05/24/24 15:08 Height 5 ft 5 in Weight 134 lb 7.712 oz BMI 22.4 Intake Visit Reasons: Ultrasound results Assistant Sales Center Manager Required: No Information Interpreted: non-clinical & clinical Accompanied by: Mother Allergies No Known Allergies Allergy (Verified 05/24/24 15:08) Patient : Yes HPI Comments Details: Presenting for follow-up OB ultrasound with no complaints no vaginal bleeding or cramping. On vitamin 1 tablet p.o. q.d.. OB ultrasound done today no official report available yet, unofficial reading showed the following: Posterior myoma measuring 1.5 x 1.3 x 1.2 cm Intrauterine with yolk sac and embryo with positive heart rate EDC by LMP 01/07/2025 by ultrasound 01/09/2025 Ovarian cyst measuring 8.2 x 5.3 x 7.3 cm PFSH Social History Alcohol intake: current Alcohol intake frequency: holidays/special occasions only Patient : Yes Female Reproductive History Menstrual Age of Menarche: 11 Review of Systems Const All systems reviewed & are unremarkable except as noted in HPI and below Reports as per HPI and Reports no additional complaints GI Reports no additional complaints Reports no additional complaints Physical Exam Vital Signs: BMI result Body Mass Index 22.4 Assessment & Plan Assessment & Plan (1) Early stage of : Code(s): Z34.90 - Encounter for supervision of normal , unspecified, unspecified trimester Category: Medical Plan: Discussed with the patient the finding on ultrasound, the patient was reassured. vitamin tablet p.o. q.d. SAB warnings given to patient, she is to call or go to emergency room in case of pelvic cramping and or bleeding Instructions given the patient to schedule a 1st initial OB visit, the patient is interested in transferring to [facility] visit. Instructed the patient to call our office back in case appointment is not scheduled, missed or canceled so that we will provide care for the patient to scheduling her next appointment, the patient verbalized understanding agreed with the plan. (2) Simple ovarian cyst: Comment: Right 8 cm Uterine myoma Code(s): N83.209 - Unspecified ovarian cyst, unspecified side Category: Medical Plan: Discussed with the patient the finding on ultrasound showing an 8 cm simple cyst, and uterine myoma. signs and symptoms of torsion and or rupture were discussed with the patient, instructions were given to patient to avoid strenuous exercises and sexual intercourse and to call or go to emergency room in case of abdominal/pelvic cramping, nausea or vomiting. Also discussed with the patient the finding of myoma its implication on , and effects of on uterine myomas. All questions answered, the patient verbalized understanding Coding Level of Care Code Est Pt Level 3 (01286) Diagnoses Early stage of Z34.90 Simple ovarian cyst N83.209
[2024-05-24 15:08] VITALS: BMI 22.4
== END 2024-05-24 15:37 | disposition home or self-care (01) ==
PROVIDERS: PCP Internal Medicine; Visit Provider Obstetrics & Gynecology
DX: Z34.90 Encounter for supervision of normal pregnancy, unspecified, unspecified trimester (principal); N83.209 Unspecified ovarian cyst, unspecified side
CPT/HCPCS: 99213

== ENCOUNTER 2024-07-22 12:59 | Outpatient (REF) | payer MEDICAID, SELFPAY | END 2024-07-22 13:00 | disposition home or self-care (01) | LOC: HO.US 12:59 | PROVIDERS: PCP Internal Medicine; Visit Provider Obstetrics & Gynecology | DX: N83.209 Unspecified ovarian cyst, unspecified side (principal) | CPT/HCPCS: 76815 ==

== ENCOUNTER → 2024-07-22 13:00 | Outpatient (BNV) | payer MEDICAID, SELFPAY | PROVIDERS: PCP Internal Medicine; Visit Provider Radiology Diagnostic Radiology | DX: R19.07 Generalized intra-abdominal and pelvic swelling, mass and lump (principal) | CPT/HCPCS: 76815 ==

== ENCOUNTER 2024-08-16 14:00 | Outpatient (AMB) | payer MEDICAID, SELFPAY ==
--- NOTE | 2024-08-16 14:01 | A.OFFVIS_ITS ---
Intake Visit Reasons: Ultra sound follow up Allergies No Known Allergies Allergy (Verified 05/24/24 15:08) HPI Comments Details: The patient is scheduled tele health visit to follow-up on the Ob ultrasound done on 07/22/2024 read on 08/16/2024, it showed the following FINDINGS: A single intrauterine gestation is noted with a heart rate of 155 bpm. There is a posterior uterine fibroid measuring 2.5 x 1.8 x 2.1 cm. The right ovary measures 2.3 x 1.0 x 1.9 cm. The left ovary measures 3.3 x 1.1 x 1.8 cm. Again seen is a cyst in the midline of the pelvis measuring 8.1 x 5.2 x 7.5 cm without change. The patient is doing well with no complaints, transferred [facility] OB care to [facility] Social History Alcohol intake: current Alcohol intake frequency: holidays/special occasions only Female Reproductive History Menstrual Age of Menarche: 11 Review of Systems Const All systems reviewed & are unremarkable except as noted in HPI and below Reports as per HPI and Reports no additional complaints GI Reports no additional complaints Reports no additional complaints Telehealth Telehealth Telehealth Platform: Telephone Location of provider rendering services: practice address Location of patient: address on file Patient Identification confirmed using: Name, : Yes Telehealth method: video Patient verbally consented to treatment: Yes Patient verbally consented to billing insurance company: Yes Patient informed of any privacy concerns related to visit: Yes Assessment & Plan Assessment & Plan (1) Simple ovarian cyst: Comment: Right 8 cm Uterine myoma in Code(s): N83.209 - Unspecified ovarian cyst, unspecified side Category: Medical Plan: Discussed with the patient the finding on ultrasound showing an 8 cm ovarian cyst with uterine myoma an early . Discussed with the patient the risk of rupture and or torsion, signs symptoms of both were discussed with the patient, she is to call or go to emergency room case of pain or vaginal bleedi ng. In addition discussed with the patient the affect of on myomas and effects of myoma on . The patient stated that she is being followed up by [facility] is scheduled for an ultrasound soon. All questions answered, the patient verbalized understanding. I spent a total of 20 minutes reviewing the chart, talking to the patient via video and documenting in the medical record. Coding Level of Care Code Tele Est Pt Level 3 (75863) Diagnoses Simple ovarian cyst N83.209
== END 2024-08-16 14:14 | disposition home or self-care (01) ==
LOC: HO.HWS 14:00
PROVIDERS: PCP Internal Medicine; Visit Provider Obstetrics & Gynecology
DX: N83.209 Unspecified ovarian cyst, unspecified side (principal)
CPT/HCPCS: 99213

== ENCOUNTER → 2024-08-16 14:00 | Outpatient (BNVA) | payer MEDICAID, SELFPAY | PROVIDERS: PCP Internal Medicine; Visit Provider Obstetrics & Gynecology ==